=== PATIENT | female | born 1995 | race Caucasian/White ===

== ENCOUNTER 2021-01-21 20:20 | Emergency (ER) | payer OTHER ==
[2021-01-21 20:31] VITALS: BP 122/78; PULSE 82; TEMP 98.8; BMI 39.8
[2021-01-21] MEDS ORDERED: SODIUM CHLORIDE 1,000 ML IV STA (20:40)
[2021-01-21 21:10] LABS: HEMATOCRIT 43.5 % (32.4-45.2); HEMOGLOBIN 14.9 GM/dl (10.7-15.3); MCH 30.2 pg (25.7-33.7); MCHC 34.3 g/dl (32.0-36.0); MEAN PLT VOLUME 7.8 fl (7.5-11.1); PLATELET COUNT 297 10^3/uL (134-434); RBC 4.95 M/mm3 (3.60-5.2); RDW 12.3 % (11.6-15.6); WHITE BLOOD COUNT 11.9 K/mm3 (4.0-10.8)
[2021-01-21 21:23] LABS: HCG,QUALITATIVE URINE Negative
[2021-01-21 21:28] LABS: ALBUMIN 4.1 g/dl (3.4-5.0); BILIRUBIN,TOTAL 0.4 mg/dl (0.2-1); CALCIUM 8.9 mg/dl (8.5-10); CREATININE 0.8 mg/dl (0.55-1.3); TOT PROT 8.3 g/dl (6.4-8.2)
[2021-01-21] MEDS ORDERED: KETOROLAC TROMETHAMINE 30 MG/1 ML VIAL IVPUSH ONE (21:37)
[2021-01-21] MEDS ORDERED: KETOROLAC TROMETHAMINE 30 MG/1 ML VIAL ONE (21:42)
[2021-01-21 23:06] LABS: PLATELET ESTIMATE ADEQUATE
== END 2021-01-21 23:09 | disposition home or self-care (01) ==
LOC: FER 20:20
PROC: 3E0333Z Introduction of Anti-inflammatory into Peripheral Vein, Percutaneous Approach (ICD-10-PCS; principal; 2021-01-21)
PROC: 3E0337Z Introduction of Electrolytic and Water Balance Substance into Peripheral Vein, Percutaneous Approach (ICD-10-PCS; 2021-01-21)
DX: R10.9 Unspecified abdominal pain (principal)
CPT/HCPCS: 36415; 74176-TC; 80053; 81003; 84703; 85025; 99285-25